=== PATIENT | female | born 2000 | race Caucasian/White ===

== ENCOUNTER 2023-02-13 13:00 | Emergency (ER) | payer BC, SELFPAY ==
--- NOTE | ~2023-02-13 | XR_ITS ---
EXAM: XR toe 2nd RT min 2V DATE: 02/13/2023 14:08 HISTORY: REDNESS, PAIN, SWELLING, 3wks ago had cut between toes 2 3 . COMPARISON: None available. FINDINGS: Normal mineralization. No fracture or dislocation. No lytic or blastic lesion. Joint space s and physes are maintained. No erosion or periosteal change. Soft tissue swelling over the proximal second toe. IMPRESSION: No acute osseous finding in the right second toe. Reviewed, dictated and finalized at location K.
[2023-02-13 13:07] VITALS: BP 141/77; PULSE 86; RESP 20; TEMP 36.6; O2SAT 100
--- NOTE | 2023-02-13 14:33 | ED.LOWEXIN ---
HPI - Extremity Injury (Lower) General Chief Complaint: Extremity Injury, Lower Stated Complaint: fungus on foot-N/V Time Seen by Provider: 02/13/23 14:00 History of Present Illness HPI Narrative: 22-year-old female reports for evaluation of right second toe pain nausea and vomiting. Patient states around 2 to 3 weeks ago, she dropped a shampoo bottle on her right second toe causing a opening in her skin. States she felt like her toe was completely healed, then swam in dirty stream water in [facility] approximately 2 weeks ago. States she developed increased redness and swelling to her right toe. She was evaluated by urgent care 1 week ago and was started on Bactrim. States since the Bactrim was initiated, she has experience worsening redness and swelling. Reports today she now has nausea and vomiting. Denies known fevers, body aches, chest pain or shortness of breath, cough or congestion, urinary complaints, abdominal pain. She does report having a small amount of purulent discharge yesterday when she tried to express. Last tetanus unknown. Related Data Allergies Allergy/AdvReac Type Severity Reaction Status Date / Time No Known Allergies Allergy Verified 02/13/23 14:44 Review of Systems Review of Systems: CONSTITUTIONAL: Denies fever, chills EYES: Denies visual changes, redness, or discharge. ENT: Denies rhinorrhea, congestion, sore throat, or otalgia. CARDIOVASCULAR: Denies chest pain, palpitations, or edema. RESPIRATORY: Denies cough or dyspnea. GASTROINTESTINAL: See HPI GENITOURINARY: Denies dysuria or hematuria. SKIN: See HPI MUSCULOSKELETAL: Denies back pain, joint pain, or myalgia. NEUROLOGIC: Denies headache, numbness, dizziness, or weakness. PSYCHIATRIC: Denies anxiety or depression. Exam Narrative: GENERAL: Well-appearing, in no acute distress. HEAD: Normocephalic EYES: PERRLA ENT: Nares clear. Mucous membranes moist. Oropharynx without tonsillar hypertrophy exudate or other lesions. NECK: Supple. CHEST: No respiratory distress. Clear to auscultation, no adventitious breath sounds. HEART: Regular rate and rhythm. No murmur heard. Normal peripheral pulses. ABDOMEN: Soft, nontender, normal active bowel sounds. EXTREMITIES: Normal range of motion. No edema. SKIN: Edema and erythema overlying the distal portion of the right second toe. No active drainage or areas of fluctuance. Full range of motion of toe. Cap refill less than 2. DP pulse 2+. Sensation intact. NEURO: No focal deficits. Alert and oriented x3. PSYCH: Normal mood and affect. Course Vital Signs Vital signs: Vital Signs Temperature 97.9 F 02/13/23 13:07 Pulse Rate 86 02/13/23 13:07 Respiratory Rate 20 02/13/23 13:07 Blood Pressure 141/77 H 02/13/23 13:07 Pulse Oximetry 100 02/13/23 13:07 Oxygen Delivery Room Air 02/13/23 13:07 Temperature 98.2 F 02/13/23 17:08 Pulse Rate 76 02/13/23 17:08 Respiratory Rate 16 02/13/23 17:08 Blood Pressure 120/68 02/13/23 17:08 Pulse Oximetry 98 02/13/23 17:08 Oxygen Delivery Room Air 02/13/23 13:07 MDM - Extremity Injury (Lower) MDM Narrative Medical decision making narrative: 22-year-old female reports for evaluation of right second toe pain, nausea and vomiting. Patient dropped a shampoo bottle on her right toe 3 weeks ago, swam in a dirty spring water 2 weeks ago and developed an infection. She was started on Bactrim 1 week ago by urgent care but has had worsening redness and swelling, new onset drainage. Vital stable, she is afebrile. Exam reveals erythema and edema to the proximal aspect of the right second toe without spontaneous drainage or areas of fluctuance to I&D. Cap refill less than 2. She is neurovascularly intact. Labs obtained revealing no leukocytosis, chemistries unremarkable. CRP normal. ESR mildly elevated at 26. X-ray of the foot shows no acute osseous finding, erosion or periosteal change. She received an IV dose
[2023-02-13] MEDS: ONDANSETRON INJ 4 MG/2 ML VIAL IV PUSH (14:45)
[2023-02-13] MEDS: Please add drug allergy info to patient profile. XX (14:45)
[2023-02-13 15:00] VITALS: BP 118/76; PULSE 80; RESP 16; TEMP 36.8; O2SAT 100
[2023-02-13 15:02] LABS: Basophils Percent Auto 0.4 % (0.2-1.2); Eosinophils Absolute Auto 0.1 K/mm3 (0-0.3); Eosinophils Percent Auto 0.6 % (0-4.4); Hematocrit 40.1 % (37.0-47.0); Immature Granulocyte Absolute 0.03 K/mm3 (0.00-0.031); Immature Granulocyte Percent A 0.4 % (0-0.5); Lymphocytes Absolute Auto 2.36 K/mm3 (0.9-3.2); Lymphocytes Percent Auto 30.5 % (18.3-44.2); Mean Corpuscular HGB Conc 32.4 g/dl (32-36); Mean Corpuscular Hemoglobin 28.9 pg (26-34); Mean Corpuscular Volume 89.1 fl (80-100); Mean Platelet Volume 9.1 fl (7.4-10.4); Monocytes Absolute Auto 0.5 K/mm3 (0.1-0.6); Monocytes Percent Auto 6.1 % (2.6-8.5); Neutrophils Absolute Auto 4.8 K/mm3 (1.3-6.7); Platelet Count Result 386 k/mm3 (150-375); Red Cell Distribution Width 12.6 % (11.5-14.5); White Blood Count 7.8 K/mm3 (4.5-10.0)
[2023-02-13 15:26] LABS: Alanine Aminotransferase 24 U/L (6-35); Albumin Level 4.5 g/dL (3.5-5.1); Alkaline Phosphatase 83 U/L (38-126); Anion Gap 10 mmol/L (8-16); Aspartate Amino Transferase 36 U/L (14-36); Bilirubin,Total 0.3 mg/dL (0.2-1.3); Blood Urea Nitrogen 14 mg/dL (7-17); Calcium 9.3 mg/dL (8.4-10.2); Carbon Dioxide 26 mmol/L (22-30); Chloride 104 mmol/L (98-107); Estimated CRCL calculation 114 ml/min; Estimated Glomerular Filt Rate > 60; Glucose 106 mg/dL (65-110); Potassium 3.8 mmol/L (3.4-5.0); Sodium 140 mmol/L (137-145)
[2023-02-13 15:33] LABS: Erythrocyte Sedimentation Rate 26 mm/hr (0-20)
[2023-02-13 16:00] VITALS: BP 118/72; PULSE 78; RESP 16; O2SAT 98
[2023-02-13] MEDS: TETANUS,DIPHTHERIA,AC PERTUSSIS ADULT (0.5 ML) BOOSTRIX IM (16:19)
[2023-02-13 17:08] VITALS: BP 120/68; PULSE 76; RESP 16; TEMP 36.8; O2SAT 98
== END 2023-02-13 17:20 | disposition home or self-care (01) ==
PROVIDERS: Emergency Provider Physician Assistant
DX: L03.031 Cellulitis of right toe (principal); Z23 Encounter for immunization
CPT/HCPCS: 36415; 73660; 80053; 81025; 85025; 85652; 86140; 90471; 90715; 96365; 96366; 96375; 99284; J2405; J3370